=== PATIENT | male | born 1955 | race Caucasian/White ===

== ENCOUNTER → 2017-02-10 | Day surgery (SDC) | payer BC ==
[~2017-02-10] VITALS: Ht 177.8 cm; Wt 70.6 kg
[~2017-02-10] MED LIST: *morphine SULFATE 8 MG/ML PERIprocedure ONLY ONE; ACETAMINOPHEN 1000 MG/100 ML 100 ML IV ONE; ACETAMINOPHEN/HYDROcodone 325 MG/10 MG TAB PO PRN; BETAMETHASONE SOD PHOS/ACETATE SUSP 30 MG/5 ML VIAL IM ONE; BETAMETHASONE SOD PHOS/ACETATE SUSP 30 MG/5 ML VIAL OTHER ONE; CHLORHEXIDINE GLUCONATE 2 % 1 PACK (2 CLOTHS) TOPICAL PRN; DESM1TAB16 PO; DO NOT ADM ANY ANTICOAGULANT DRUGS PRN; DULO1CAP3 PO; FAMOTIDINE 20 MG/2 ML VIAL ONE; GABA300C5 PO; GELATIN 12 MM/7 MM FOAM ONE; GENTAMICIN SULFATE 80 MG/2 ML VIAL ONE; HYDR-3366 PO; HYDR-3583 PO; HYDROmorphone HCL PF 2 MG/ML VIAL ONE; INSULIN HUMAN REGULAR 1,000 UNITS/10 ML VIAL SQ PRN; KETOROLAC TROMETHAMINE 60 MG/2 ML (IM) VIAL IM ONE; LACTATED RINGER'S 1000 ML INJ 1,000 ML IV ONE; LACTATED RINGER'S 1000 ML INJ 1,000 ML IV SCH; LACTATED RINGER'S 1000 ML INJ 500 ML IV ONE; LACTATED RINGER'S 1000 ML IV PRN; METOPROLOL TARTRATE 25 MG TAB PO PRN; MIDAZOLAM HCL 2 MG/2 ML VIAL ONE; MORPHINE SULFATE 4 MG/ML INJ IV PRN; NEOSTIGMINE 3 MG/3 ML SYR IV ONE; ONDANSETRON HCL 4 MG/2 ML VIAL IV PUSH ONE; PHENYLEPH/NS 1000 MCG/10 ML SYR IV ONE; POVIDONE IODINE 5% (ANTISEPSIS KIT) 4 APPLICATIONS EACH NARE PRN; POVIDONE IODINE 7.5% SCRUB 118 ML BOTTLE TOPICAL SCH; PROPOFOL 200 MG/20 ML AMP IV ONE; SODIUM CHLOR 0.9% 250 ML INJ 250 ML IV ONE; SODIUM CHLORID 0.9% 500 ML IV PRN; TAMS0.4C4 PO; TRAM50TA PO; ceFAZolin 2 GM PREMIX 50 ML IV SCH; ePHEDrine/NS 25 MG/5 ML SYR IV ONE
--- NOTE | 2017-02-10 09:29 | MH ---
cc: STEFF LING DATE OF ADMISSION 02/10/2017 ADMISSION DIAGNOSIS Herniated nucleus pulposus lumbar spine. HISTORY This is a 61-year-old male with significant left hip and leg pain. Investigative studies shows evidence of a large sequestered disk herniation to the left extending below the disk space at the L3-4 level. The patient is having significant left L4 nerve root and some L3 nerve root weakness. Despite conservative care, the patient is getting worse. He presents now for surgical treatment. PAST MEDICAL HISTORY, SOCIAL HISTORY AND FAMILY HISTORY, REVIEW OF SYSTEMS See attached notes. PHYSICAL EXAMINATION This is a 61-year-old male in moderate stress with his back, left hip and leg. HEENT: Normocephalic, atraumatic. Pupils equal, round, reactive to light and accommodation. Extraocular motions intact. NECK: Supple. CHEST: Clear. HEART: Regular rate rhythm. ABDOMEN: Soft and nontender with normoactive bowel sounds. MUSCULOSKELETAL: The thoracolumbar spine has a restricted motion. Dfvjhyyx-txl-omssr is positive on the left, negative on the right. Motor examination shows significant weakness left anterior tibialis. IMPRESSION Herniated nucleus pulposus L3-4, left, sequestered. PLAN Lumbar laminectomy left L3, L4, lateral recess decompression, resection herniated nucleus pulposus, use of dilation port and microscope. CONSENT The risks of surgery including infection, bleeding, loss of motion, continued pain need for further surgery, neurologic and vascular injury. The patient understands these issues and wishes to press on with surgery as outlined above. MD ELISE Banuelos/ELLEN /7:02 AM /9:22 AM
--- NOTE | 2017-02-10 13:06 | EKG ---
Date Performed: 02/10/2017 Time Performed: 08:32:38 PTAGE: 61 years EKG: Sinus rhythm NORMAL ECG NO PREVIOUS TRACING DOCTOR: Tamiko Potts Interpretating Date/Time 02/10/2017 13:04:42
--- NOTE | 2017-02-10 13:32 | PD.OP ---
cc: Jay Freeman MD Operative Report Date of Surgery: Feb 10, 2017 Preoperative Diagnosis: Herniated nucleus pulposus L3 4, left, sequestered. Lumbar spinal stenosis. Left lumbosacral radiculopathy Postoperative Diagnosis: Same Procedure: Lumbar laminectomy left L3, L4, resection herniated nucleus pulposus Anesthesia: Gen. Surgeon: Jay Freeman Construction Scheduler(s): RACHNA Dejesus Operation and Findings: EBL: 50 cc INDICATION: This patient is a 61-year-old male with severe left leg pain with weakness. Studies show evidence of a large sequestered disc herniation L3 4 to the left extending below the disc space. He presents for surgical treatment. NOTE: Nanci Dejesus PA-C was present for the entire surgical procedure as my first leveler. In my medical opinion her skill and care was necessary for the proper management of this patient. PROCEDURE: The patient was brought to the operating room and anesthetized in the supine position. The patient was rolled to a prone position on a Micky frame on a Abdias table. All pressure points were protected in the back was scrubbed with alcohol followed by Hibiclens followed by ChloraPrep and draped sterilely. A timeout was done and antibiotics were given. AP and lateral radiographic images were used to identify the proper levels and perform skin markings. We started from the left side at the L3 4 level. A paramedian incision was made and an off-midline fascial incision was made. A dilating system was placed down to the interlaminar space and held provisionally to the side of the table. The microscope was brought into the field. A high-speed bur under the microscope was used to perform a predominantly left-sided laminectomy from that side. A lateral recess decompression was accomplished using straight and angled Kerrison punches. A partial medial facetectomy was accomplished. The crossing and exiting nerve roots were completely decompressed. The wound was irrigated copiously. A small piece of Gelfoam with Celestone was placed into the epidural space. Hemostasis was controlled. The deep fascia was approximated with interrupted 0 Vicryl suture subcutaneous suture with 2-0 Vicryl suture and skin with running intradermal 3-0 Vicryl followed by Dermabond. A field block with local anesthesia was utilized. A sterile dressing was applied. The sponge count and needle counts and instrument counts were all correct. The patient tolerated the procedure well as taken to the recovery room in satisfactory condition. FINDINGS: There was evidence of a large sequestered disc herniation to the left at and below the disc space. There was severe L4 nerve root compression. There was no additional compression after the disc was resected. No complication was appreciated Jay Freeman MD Feb 10, 2017 13:32
[2017-02-10 16:15] VITALS: BP 113/67; PULSE 85; RESP 18; TEMP 97.6; O2SAT 100
--- NOTE | 2017-02-10 17:57 | RADRPT ---
EXAM DATE/TIME: 02/10/2017 12:29 [facility] COMPARISON: No previous studies available for comparison. INDICATIONS : L3-4 Laminectomy. MEDICAL HISTORY : None. SURGICAL HISTORY : None. ENCOUNTER: Initial ACUITY: 1 day PAIN SCORE: Non-responsive. LOCATION: Lumbar spine. FINDINGS: Single lateral C-arm matrix view reveals degenerative disc disease L5-S1 and grade 1 spondylolisthesi s L4 on L5 with a posterior marker projecting toward the superior aspect of L4 CONCLUSION: Posterior marker projecting toward the superior aspect of L4 Jaden Booker MD on February 10, 2017 at 17:55 Board Certified Radiologist. This report was verified electronically.
== END | disposition home or self-care (01) ==
LOC: HSDC 08:07
PROVIDERS: ATTEND Orthopaedic Surgery Orthopaedic Surgery of the Spine
DX: M51.26 Other intervertebral disc displacement, lumbar region (principal); M48.06 Spinal stenosis, lumbar region; M54.17 Radiculopathy, lumbosacral region; Z01.810 Encounter for preprocedural cardiovascular examination; Z79.891 Long term (current) use of opiate analgesic; Z79.899 Other long term (current) drug therapy
CPT/HCPCS: 00670; 63030; 72020; 76000; 93005; J0131; J0690; J0702; J1580; J1885; J2250; J2270; J2370; J2405; J2710; J3010; J7050; J7120; J1170